=== PATIENT | female | born 1995 | race African-American/Black ===

== ENCOUNTER 2017-01-08 11:48 | Emergency (ER) | payer SELFPAY ==
[~2017-01-08] VITALS: Ht 165.1 cm; Wt 81.2 kg
[~2017-01-08 11:48] MED LIST: FLUC150T PO; SULF1TAB24 PO
[2017-01-08 12:10] VITALS: BP 117/67
[2017-01-08] MEDS ORDERED: cefTRIAXone IM 250 MG VIAL IM ONE (12:30)
[2017-01-08] MEDS ORDERED: metroNIDAZOLE 500 MG TABLET PO ONE (12:30)
[2017-01-08] MEDS ORDERED: AZITHROMYCIN 250 MG TABLET. PO ONE (12:30)
[2017-01-08 12:45] LABS: BILIRUBIN,URINE SMALL (NEG); GLUCOSE,URINE NEGATIVE (NEG); NITRITE,URINE NEGATIVE (NEG); PROTEIN,URINE 30 mg/dL (NEG-TRACE)
[2017-01-08] MEDS ORDERED: LIDOCAINE 1% PF 2 ML VIAL. INJ ONE (13:00)
[2017-01-08 13:27] LABS: BACTERIA,URINE 0 /HPF (0-FEW); SQUAMOUS EPITHELIAL CELL,UR MANY /LPF
[2017-01-08] MEDS ORDERED: METR500T PO (13:29)
--- NOTE | 2017-01-08 13:29 | PHYS DOC ---
Past Medical History Past Medical History: Other Additional Past Medical Histor: trichomoniasas, ghonorrhea Past Surgical History: No Surgical History Alcohol Use: None Drug Use: None Adult General Chief Complaint Chief Complaint: SEXUALLY TRANSMITTED DISEASE HPI HPI Patient is a 21 year old female with no significant medical history who presents today for STD check and treatment. Patient states she was diagnosed with Trichomonas chlamydia and herpes a couple weeks ago. She states she does not believe she was treated for the Trichomonas and Chlamydia. Patient denies any herpes lesions OR outbreak. Denies any chance she is . She is complaining of odorous vaginal discharge for 1 week. Review of Systems Review of Systems Constitutional: Denies fever or chills [] Eyes: Denies change in visual acuity, redness, or eye pain [] HENT: Denies nasal congestion or sore throat [] Respiratory: Denies cough or shortness of breath [] Cardiovascular: No additional information not addressed in HPI [] GI: Denies abdominal pain, nausea, vomiting, bloody stools or diarrhea [] : Vaginal discharge and concern for STDs Musculoskeletal: Denies back pain or joint pain [] Integument: Denies rash or skin lesions [] Neurologic: Denies headache, focal weakness or sensory changes [] Endocrine: Denies polyuria or polydipsia [] Current Medications Current Medications Current Medications Medications (Trade) Dose Ordered Sig/Peng Start Time Stop Time Status Last Admin Dose Admin Azithromycin (Zithromax) 1,000 mg 1X ONCE 01/08/17 12:30 01/08/17 12:31 DC 01/08/17 13:06 1,000 MG Ceftriaxone Sodium (Rocephin Im) 250 mg 1X ONCE 01/08/17 12:30 01/08/17 12:31 DC 01/08/17 13:06 250 MG Lidocaine HCl (Xylocaine-Mpf 1% Vial) 2 ml 1X ONCE 01/08/17 13:00 01/08/17 13:02 DC 01/08/17 13:06 2 ML Metronidazole (Flagyl) 2,000 mg 1X ONCE 01/08/17 12:30 01/08/17 12:31 DC 01/08/17 13:05 2,000 MG Allergies Allergies Allergies Coded Allergies Type Severity Reaction Last Updated Verified No Known Drug Allergies 12/15/15 No Physical Exam Physical Exam Constitutional: Well developed, well nourished, no acute distress, non-toxic appearance. [] HENT: Normocephalic, atraumatic, bilateral external ears normal, oropharynx moist, no oral exudates, nose normal. [] Eyes: PERRLA, EOMI, conjunctiva normal, no discharge. [] Neck: Normal range of motion, no tenderness, supple, no stridor. [] Cardiovascular:Heart rate regular rhythm, no murmur [] Lungs & Thorax: Bilateral breath sounds clear to auscultation [] Abdomen: Bowel sounds normal, soft, no tenderness, no masses, no pulsatile masses. [] Pelvic exam External pelvic appears normal, cervix is closed, no CMT, no adnexal tenderness , mild amount of white discharge in the vaginal vault Skin: Warm, dry, no erythema, no rash. [] Back: No tenderness, no CVA tenderness. [] Extremities: No tenderness, no cyanosis, no clubbing, ROM intact, no edema. [] Neurologic: Alert and oriented X 3, normal motor function, normal sensory function, no focal deficits noted. [] Psychologic: Affect normal, judgement normal, mood normal. [] Current Patient Data Vital Signs Vital Signs Date Time Temp Pulse Resp B/P (MAP) Pulse Ox O2 Delivery O2 Flow Rate FiO2 01/08/17 12:10 98.2 94 16 100 Room Air 98.2 Lab Values Laboratory Tests Test 01/08/17 12:33 POC Urine HCG, Qualitative Hcg negative (Negative) Microbiology 01/08/17 Wet Prep - Final, Complete EKG EKG [] Radiology/Procedures Radiology/Procedures [] Course & Med Decision Making Course & Med Decision Making Pertinent Labs and Imaging studies reviewed. (See chart for details) Patient is in the ED with concern for STDs. She was treated prophylaxis with azithromycin, Flagyl and Rocephin. She was positive for BV and discharged with Flagyl. Educated on safe sex practices especially the need to use protection at all times. Dragon Disclaimer Dragon Disclaimer This electronic medical record was generated, in whole or in part, using a voice recognition dictation system. Departure Departure Impression: Primary Impression: Concern about STD in female without diagnosis Additional Impression: Bacterial vaginosis Disposition: 01 HOME, SELF-CARE Condition: STABLE Referrals: NO PCP (PCP) follow up with the health department as needed Patient Instructions: Bacterial Vaginosis, Sexually Transmitted Disease Additional Instructions: You treated prophylaxis for STDs to cover you for Trichomonas, gonorrhea and chlamydia. Do not have sex for week. Use protection anytime you have sex. Contact all your sex partners, let them know you treated for STDs and ask them to seek treatment too. You tested positive for bacterial vaginosis, this is not an STD. We put you on antibiotics to clear this. Scripts Metronidazole (FLAGYL) 500 Mg Tablet 1 TAB PO BID, #10 TAB Prov: ANEL STAPLES APRN 01/08/17 Problem Qualifiers ANEL STAPLES APRN Jan 08, 2017 13:29
--- NOTE | 2017-01-11 14:15 | VNOTE ---
CALL BACK NOTE CALL BACK Microbiology 01/08/17 Wet Prep - Final, Complete Attempted to contact the patient at the number [phone] With the person on the line answering the phone stating that there is no Gregoria this number. Patient 's STD results was positive for chlamydia. She was treated here in the emergency department. Unable to contact her in regards to positive test result. MICHELLE WARD APRN Jan 11, 2017 14:15
== END 2017-01-08 13:40 | disposition home or self-care (01) ==
LOC: ER 11:48
DX: Z11.3 Encounter for screening for infections with a predominantly sexual mode of transmission (principal); N76.0 Acute vaginitis
CPT/HCPCS: 81001; 81025; 87491; 87591; 96372; 99284; J0696; Q0111; Q0144

== ENCOUNTER 2017-01-15 21:00 | Emergency (ER) | payer SELFPAY ==
[~2017-01-15 21:00] MED LIST changes: +METR500T PO
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
[2017-01-15] MEDS ORDERED: HYDR-971 PO (22:33)
[2017-01-15] MEDS ORDERED: AMOX1TAB61 PO (22:33)
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
[2017-01-15] MEDS ORDERED: DIPHTH,PERTUSS(ACELL),TET TOX 0.5 ML DISP.SYRIN. VAX IM ONE (23:00)
[2017-01-15] MEDS ORDERED: HYDROcodone/APAP 5/325MG 1 TAB TABLET PO ONE (23:00)
== END 2017-01-15 22:45 | disposition home or self-care (01) ==
LOC: ER 21:00
DX: S02.2XXA Fracture of nasal bones, initial encounter for closed fracture (principal); W50.1XXA Accidental kick by another person, initial encounter; Y93.89 Activity, other specified; Y99.8 Other external cause status; Y92.89 Other specified places as the place of occurrence of the external cause
CPT/HCPCS: 70486; 81025; 99284-25